=== PATIENT | male | born 1955 | race Caucasian/White ===

== ENCOUNTER → 2019-01-26 08:15 | Outpatient (CLI) | payer MEDICARE, MEDICAID | END | disposition home or self-care (01) | LOC: D.US 08:15 | PROVIDERS: ATTEND General Practice | DX: R10.11 Right upper quadrant pain (principal) ==

== ENCOUNTER 2019-04-01 10:55 | Outpatient (CLI) | payer MEDICARE, MEDICAID ==
[~2019-04-01] VITALS: Ht 175.3 cm; Wt 89.5 kg
--- NOTE | ~2019-04-01 | HEMODYNAMI ---
PATIENT:GERALDINE CAPELLAN MEDICAL RECORD: [id number] : 51 LOCATION:[facility] ADMISSION DATE: 04/01/19 Generatedon:04/01/201914:17 Patient name: GERALDINE CAPELLAN Patient #: [id number] SSN: : Date of study: 04/01/2019 Page: Of Hemodynamic Procedure Report Patient Data Patient Demographics Procedure consent was obtained First Name: GERALDINE Gender: Male Last Name: MARILIA : 1955 Middle Initial: H Age: 63 year(s) Patient #: [id number] Race: Unknown Additional ID: [id number] Contact details [address]: [address] [place] [address] State: [place] City: [place] Zip code: [address] Past Medical History Allergies Allergen Reaction Date Comments Reported Other allergy 04/01/2019 TETRACAINE, MORPHINE, CODEINE Admission Admission Data Admission Date: 04/01/2019 Admission Time: 10:55 Height (in.): 69 BSA: 2.06 (m2) Height (cm.): 175.26 BMI: 29.3 (kg/m2) Weight (lbs.): 198.42 Weight (kg.): 90 Lab Results Lab Result Date: 04/01/2019 Lab Result Time: 0:00 Biochemistry Name Units Result Min Max BUN mg/dl 23 --(----)-* 7 18 Creatinine mg/dl 1.3 --(---*)-- 0.6 1.3 CBC Name Units Result Min Max Hematocrit % 41.8 -*(----)-- 42 54 Hemoglobin g/dl 13.6 --(*---)-- 13.5 17.5 Procedure Procedure Types Cath Procedure Diagnostic Procedure [facility] w/Coronaries FFR/IVUS FFR Initial Intra-Coronary IVUS Initial PCI Procedure Coronary Stent Coronary Stent Initial Procedure Description Procedure Date Procedure Date: 04/01/2019 Procedure Start Time: 13:31 Procedure End Time: 14:17 Procedure Staff Name Function Warren Rivera MD Performing Physician Polly Escalona RN Nurse Torito Augustine RN Client Architect [facility] RT Scrub Reese Malone RT Monitor Procedure Data Cath Procedure Fluoroscopy Diagnostic fluoroscopy Total fluoroscopy Time: 7.1 time: 7.1 min min Diagnostic fluoroscopy Total fluoroscopy dose: 671 dose: 671 mGy mGy Contrast Material Contrast Material Type Amount (ml) Isovue 370 97 Entry Location Entry Primary Successful Side Size Upsize Upsize Entry Closure Succes sful Closure Location (Fr) 1 (Fr) 2 (Fr) Remarks Device Remarks Femoral Right 5 Fr 6 Fr Exoseal artery Short Estimated blood loss: 10 ml Diagnostic catheters Device Type Used For End Catheter Placement MULTIPACK JL 4.0 5Fr Procedure catheter MULTIPACK 3DRC 5Fr Procedure catheter MULTIPACK Pigtail 5 Fr Procedure catheter Procedure Complications No complications Procedure Medications Medication Administration Route Dosage 0.9% NaCl I.V. 100 ml/hr Oxygen etCO2 Nasal cannula 2 l/min Lidocaine 2% added to field 20 Heparin Flush Bag added to field 2 bags (1000units/500ml NS) Versed I.V. 2 mg Fentanyl I.V. 50 mcg Versed I.V. 2 mg Fentanyl I.V. 50 mcg Versed I.V. 2 mg Heparin Bolus I.V. 5000 units Integrilin (Bolus I.V. 7.9 2mg/ml) Plavix P.O. 600 mg Versed I.V. 2 mg Hemodynamics Rest BSA: 2.06 (m2) O2 Consumption: Estimated: 249.23 (ml/min) O2 Consumption indexed : Estimated:120.99 (ml/min/m) Heart Rate: 82 (bpm) Pressure Samples Time Site Value (mmHg) Purpose Heart Use Rate(bpm) 13:39 LV 132/15,18 Snapshot 82 Gradients Valve Time Site Site Mean SEP/DFP Peak To Heart Use 1 2 (mmHg) (sec/min) Peak Rate (mmHg) (bpm) Aortic 13:39 LV AO 83 Snapshots Pre Cath Intra NCS Post Cath Vital Signs Time Heart Resp SPO2 etCO2 NIBP (mmHg) Rhythm Pain Sedation Rate (ipm) (%) (mmHg) Status Level (bpm) 13:20:56 91 15 99 31.3 163/89(139) NSR 0 (11) 10(A) , No pain 13:25:04 84 14 100 20.9 144/92(125) NSR 0 (11) 10(A) , No pain 13:29:16 85 14 100 39.5 136/83(110) NSR 0 (11) 10(A) , No pain 13:33:28 85 10 100 33.6 139/80(100) NSR 0 (11) 10(A) , No pain 13:37:38 82 15 100 24.6 135/78(106) NSR 0 (11) 10(A) , No pain 13:41:52 86 11 100 35.8 144/72(103) NSR 0 (11) 10(A) , No pain 13:46:10 88 13 100 41.8 135/80(105) NSR 0 (11) 10(A) , No pain 13:50:24 85 12 100 30.5 127/80(108) NSR 0 (11) 9(A) , No pain 13:54:36 90 12 100 41.7 133/77(105) NSR 0 (11) 9(A) , No pain 13:58:46 88 14 100 39.5 137/79(99) NSR 0 (11) 9(A) , No pain 14:02:51 91 13 100 35.8 131/86(111) NSR 0 (11) 10(A) , No pain 14:07:01 91 15 100 38 128/89(112) NSR 0 (11) 10(A) , No pain 14:11:07 88 11 100 38 135/88(121) NSR 0 (11) 10(A) , No pain 14:15:15 87 24 99 33.5 146/89(121) NSR 0 (11) 10(A) , No pain Medications Time Medication Route Dose Verified Delivered Reason Notes Effectiveness by by 13:19:28 0.9% NaCl I.V. 100 Warren Polly used for ml/hr Nicole Pola procedure RN 13:19:35 Oxygen etCO2 2 Warren Polly used for Nasal l/min Nicole Pola procedure cannula MD OCAMPO 13:19:40 Lidocaine 2% added 20ml Warren Kelley [facility] SY[facility] 13:19:44 Heparin Flush added 2 Warren Warren used for [facility] (1000units/500ml field MD SYLVESTER NS) 13:31:18 Versed I.V. 2 mg Warren Polly for sedation St Geraldine Escalona MD RN 13:31:25 Fentanyl I.V. 50 Warren Polly for sedation mcg St Geraldine Escalona MD, RN 13:37:47 Versed I.V. 2 mg Warren Polly for sedation St Geraldine Escalona MD, RN 13:37:54 Fentanyl I.V. 50 Warren Polly for sedation mcg St Geraldine Escalona MD, RN 13:42:04 Versed I.V. 2 mg Warren Polly for sedation St Geraldine Escalona MD, RN 13:46:12 Versed I.V. 2 mg Warren Polly for sedation St Geraldine Escalona MD, RN 13:52:41 Heparin Bolus I.V. 5000 Warren Polly for verif ied units St Geraldine Escalona anticoagulation with Dr. SYLVESTER RN Vernal 13:52:55 Integrilin I.V. 7.9mL Warren Polly for waste d (Bolus 2mg/ml) ml St Geraldine Escalona antiplatelet 2.1mL RN therapy 13:57:58 Plavix P.O. 600 Warren Polly for mg St Geraldine Escalona antiplatelet RN therapy Procedure Log Time Note 12:40:38 Signed procedure consent form obtained from patient. 12:40:40 Diagnostic Cath status Elective 12:40:42 Time tracking: Regular hours (M-F 7:00 - 5:00) 12:40:46 Plan of Care:Hemodynamics will remain stable., Cardiac rhythm will remain stable., Comfort level will be maintained., Respiratory function will remain adequate., Patient/ family verbilizes understanding of procedure., Procedure tolerated without complication., Recovers from procedure without complications.. 12:57:05 Polly Escalona RN sent for patient. Start room use. 13:05:02 Patient allergic to Other allergyTETRACAINE, MORPHINE, CODEINE 13:05:08 Patient Weight : 198.42 lbs 13:05:15 Patient Height : 69 inches 13:06:16 Lab Result : BUN 23 mg/dl 13:06:16 Lab Result : Hemoglobin 13.6 g/dl 13:06:16 Lab Result : Creatinine 1.3 mg/dl 13:06:16 Lab Result : Hematocrit 41.8 % 13:12:49 Patient received from Pre/Post Procedure Room to CCL 1 Alert and oriented. Tansferred to table in Supine position. 13:12:50 Warm blankets applied, and vilma hugger turned on for patient comfort. 13:12:50 Correct patient and procedure confirmed by team. 13:12:51 ECG and BP/O2 sat monitors applied to patient. 13:19:28 0.9% NaCl 100 ml/hr I.V. was administered by Polly Escalona RN; used for procedure; 13:19:35 Oxygen 2 l/min etCO2 Nasal cannula was administered by Polly Escalona RN; used for procedure; 13:19:40 Lidocaine 2% 20ml vial added to field was administered by Warren Rivera MD; for local anesthetic; 13:19:44 Heparin Flush Bag (1000units/500ml NS) 2 bags added to field was administered by Warren Rivera MD; used for procedure; 13:19:46 Vital chart was started 13:22:48 Rhythm: sinus rhythm 13:22:49 Full Disclosure recording started 13:24:00 H&P Date Dictated: 03/31/2019 Within 30 days and on chart.. 13:24:01 Pre-procedure instructions explained to patient. 13:24:01 Pre-op teaching completed and patient verbalized understanding. 13:24:08 Family in patients room. 13:24:10 Patient NPO since Midnight. 13:24:12 Is the patient allergic to Iodine/contrast media? No. 13:24:21 Is patient on blood thinner?No 13:24:24 Patient diabetic? No. 13:24:27 Previous problem with sedation/anesthesia? No ? 13:24:28 Snore? Yes 13:24:29 Sleep apnea? No 13:24:31 Deviated septum? No 13:24:31 Opens mouth fully? Yes 13:24:33 Sticks out tongue? Yes 13:24:35 Airway obstruction? No ? 13:24:37 Dentures? No ? 13:25:00 Pt opted for femoral approach. 13:25:00 Pre procedure: right dorsailis pedis pulse 1+ Palpable, but thready & weak; easily obliterated 13:25:03 Patient pain scale 0/10 ?. 13:25:21 IV patent on arrival in left hand with 0.9% NaCl at [facility]. 13:25:25 Lab results completed and on chart. 13:25:27 Right groin area was prepped with chlora-prep and draped in sterile fashion 13:25:28 Alarms reviewed by R. N. 13:25:29 Sharps counted by scrub and verified by R.N. 13:26:16 Use device set Femoral Dx 13:26:18 Tegaderm 4 x 4 (1626W) opened to sterile field. 13:26:19 ACIST Manifold (74797) opened to sterile field. 13:26:20 ACIST Hand Control (34605) opened to sterile field. 13:26:21 ACIST Syringe (91308) opened to sterile field. 13:26:21 Bag Decanter (2002S) opened to sterile field. 13:26:22 Medline Cath Pack ([id number]) opened to sterile field. 13:26:23 DIAGNOSTIC WIRE .035 260cm J wire (240059) opened to sterile field. 13:26:28 DIAGNOSTIC Multipack 5Fr catheter set (UF0435) opened to sterile field. 13:26:31 SHEATH 5FR [place] (JCY561) opened to sterile field. 13:30:41 --------ALL STOP TIME OUT------ 13:30:41 Final Timeout: patient, procedure, and site verified with staff and physician. All members of the team are in agreement. 13:30:43 Right groin site verified by team. 13:30:47 Maximum allowable Isovue 370 dose 300ml. Physician notified. (300ml for normal creatinines. For patients with creatinine of 1.7 or higher multiply weight(kg) x 5 divided by creatinine.) 13:30:52 Fire Safety Assessment: A--An alcohol-based skin anteseptic being used preoperatively., C--Open oxygen or nitrous oxide is being used., D--An ESU, laser, or fiber-optic light is being used. 13:30:58 Physical assessment completed. ASA score P 2 - A patient with mild systemic disease as per Warren Rivera MD. 13:31:01 Sedation plan: IV Moderate Sedation Medication:Versed, Fentanyl 13:31:18 Versed 2 mg I.V. was administered by Polly Escalona RN; for sedation; 13:31:25 Fentanyl 50 mcg I.V. was administered by Polly Escalona RN; for sedation; 13:31:32 Procedure started. 13:31:35 Local anesthetic to right femoral artery with Lidocaine 2% by Warren Rivera MD.INITIAL ACCESS ONLY 13:33:03 A 5 Fr sheath was inserted into the Right Femoral artery 13:34:06 A MULTIPACK JL 4.0 5Fr catheter was advanced over the wire and used for Procedure. 13:34:39 LCA angiography performed. 13:36:19 Catheter removed. 13:36:24 A MULTIPACK 3DRC 5Fr catheter was advanced over the wire and used for Procedure. 13:37:00 RCA angiography performed. 13:37:03 Catheter removed. 13:37:[address] CHANDLER PCI 13:37:21 SHEATH 6FR [place] (ASG429) opened to sterile field. 13:37:38 WHISPER 300cm guide wire ([id number]) opened to sterile field. 13:37:40 INFLATOR Merit BasixCompak (BE1350) opened to sterile field. 13:37:47 Versed 2 mg I.V. was administered by Polly Escalona RN; for sedation; 13:37:47 A MULTIPACK Pigtail 5 Fr catheter was advanced over the wire and used for Procedure. 13:37:54 Fentanyl 50 mcg I.V. was administered by Polly Escalona RN; for sedation; 13:39:14 LV angiography performed. 13:39:15 LV gram done using HENDRIX 13:40:42 EF : 55 % 13:40:44 LV hemodynamics recorded. 13:40:47 Injector settings: Ml/sec: 10, Volume: 20, 13:40:48 Catheter removed. 13:40:51 GUIDE 6FR HS I catheter (LA6HSI) opened to sterile field. 13:40:57 [place] Verrata Plus pressure wire (92876R) opened to sterile field. 13:40:58 Sheath upsized to a 6 Fr Short. 13:41:15 6 Fr HS 1 guide catheter was inserted over the wire 13:42:04 Versed 2 mg I.V. was administered by Polly Escalona RN; for sedation; 13:43:56 FFR/IFR wire advanced. 13:46:12 Versed 2 mg I.V. was administered by Polly Escalona RN; for sedation; 13:49:02 RCA lesion measured at 0.91 with IFR 13:49:23 RCA lesion measured at 0.93 with IFR 13:51:53 Wire removed. 13:52:23 Whisper wire advanced. 13:52:41 Heparin Bolus 5000 units I.V. was administered by Polly Escalona RN; for anticoagulation; verified with Dr. Hernandez 13:52:46 Wire advanced across lesion. 13:52:55 Integrilin (Bolus 2mg/ml) 7.9mL ml I.V. was administered by Polly Escalona RN; for antiplatelet therapy; wasted 2.1mL 13:52:57 [place] Eagleye IVUS Catheter (46360Y) opened to sterile field. 13:53:24 IVUS catheter advanced over wire. 13:55:03 IVUS pass to RCA lesion performed. 13:55:12 IVUS catheter removed over wire. 13:57:58 Plavix 600 mg P.O. was administered by Polly Escalona RN; for antiplatelet therapy; 13:59:24 IVUS measured at 86%. 14:00:18 Place stent Inflation Number: 1 A COBRA RX 3.5 X 18 stent ([id number]) was prepped and advanced across the Mid RCA. The stent was deployed at 12 LYNNE for 0:10 (min:sec). 14:04:46 Stent catheter was removed intact over wire. 14:04:47 Wire removed. 14:04:48 Guide catheter removed. 14:05:32 EXOSEAL 6Fr (EX600) opened to sterile field. 14:05:42 Sheath removed intact; hemostasis achieved with Exoseal to the Right Femoral artery. 14:05:44 Procedure ended.(Physican Out) 14:06:45 Fluoroscopy time 07.10 minutes. 14:06:49 Fluoroscopy dose: 671 mGy 14:06:49 Flurop Dose total: 671 14:07:01 Contrast amount:Isovue 370 97ml. 14:07:02 Sharps counted by scrub and verified by R.N. 14:07:04 Insertion/operative site no bleeding no hematoma. 14:07:08 Post-op/insertion site Right Femoral artery dressed using a 4 x 4 and Tegaderm. 14:07:09 Post Procedure Pulses reassessed and unchanged 14:07:12 Post-procedure physical assessment completed. ASA score P 2 - A patient with mild systemic disease as per Warren Rivera MD. 14:07:14 Post procedure rhythm: unchanged. 14:07:16 Estimated blood loss: 10 ml 14:07:19 Post procedure instruction explained to patient.Patient verbalizes understanding. 14:07:19 Patient needs reinforcement of post procedure teaching. 14:08:11 Procedure type changed to Cath procedure, Diagnostic procedure, LHC, LHC w/Coronaries, FFR/IVUS, FFR Initial, Intra-Coronary IVUS Initial, PCI procedure, Coronary Stent, Coronary Stent Initial 14:14:44 Pt began to develop a hematoma. Femstop applied at 120. 14:14:51 FEMSTOP Gold (D05330) opened to sterile field. 14:14:56 Procedure and supply charges have been captured, reviewed, submitted and are correct. 14:14:59 Procedure Complication : No complications 14:16:57 Vital chart was stopped 14:16:59 See physician's report for complete and final results. 14:17:01 Report given to Pre/Post Procedure Room. 14:17:07 Patient transfered to Pre/Post Procedure Room with Stretcher. 14:17:09 Procedure ended. 14:17:09 Full Disclosure recording stopped 14:17:17 End room use (Document Last) Intervention Summary Intervention Notes Time ActionType Lesion and Equipment Used Action# Pressure Duration Attributes 14:00:18 Place stent Mid RCA COBRA RX 3.5 X 1 12 00:10 18 stent ([id number]) Device Usage Item Name Manufacture Quantity Catalog Hospital Part Current Minimal Lot# / Number Charge Number Stock Stock Serial# Code Tegaderm 4 x 4 3M 1 1626W 228679 [id number] [id number] 5 (1626W) ACIST Manifold Acist 1 91116 111150 002767 724638 5 (47612) Medical Systems Inc ACIST Hand Acist 1 31659 954290 136317 491603 5 Control Medical (66459) Systems Inc ACIST Syringe Acist 1 15886 696563 735007 023600 20 (49067) Medical Systems Inc Bag Decanter Microtek 1 2001S 692580 43252 767499 5 (2001S) Medical Inc. Medline Cath Medline 1 [id number] 790670 75349 643244 5 Pack ([id number]) DIAGNOSTIC [facility] Abram 1 286037 878695 448256 528724 30 WIRE .035 260cm J wire (295877) DIAGNOSTIC Cardinal 1 WG8207 020178 19709 270485 30 Multipack 5Fr Health catheter set (SS0257) SHEATH 5FR Terumo 1 EBT855 828572 403839 011462 5 [place] (WRZ280) MULTIPACK JL Cardinal 1 092658 5 4.0 5Fr Health catheter MULTIPACK 3DRC Cardinal 1 375644 5 5Fr catheter Health SHEATH 6FR Terumo 1 VAN206 142732 903149 568230 40 [place] (BRW386) WHISPER 300cm Morton 1 [id number] 950638 941686 353315 5 guide wire Vascular ([id number]) INFLATOR Merit Merit 1 YJ0575 578992 047842 254517 15 greenovation [facility] Medical (XK9221) MULTIPACK Cardinal 1 819038 5 Pigtail 5 Fr Health catheter GUIDE 6FR HS I Medtronic 1 LA6HSI 469073 93093 531751 1 catheter (LA6HSI) [place] 1 32450K 585585 755906 816126 8 [place] Eagley[place] IVUS Catheter (13329I) [place] 1 22322Q 020150 128648762 802807 5 Verrata Plus pressure wire (12350M) COBRA RX 3.5 X Celonova 1 811-17-60125 070499 262390151 05102516 2 [id number] 18 stent Biosciences ([id number]) EXOSEAL 6Fr Cardinal 1 EX600 546021 775944 062672 10 (EX600) Health FEMSTOP Gold [facility] Abram 1 Z86722 358058 412946 128153 5 ([id number]) Signature Audit [place] Stage Time Signature Unsigned Intra-Procedure 04/01/2019 Reese Malone 2:17:28 PM RT(R) Signatures Monitor : Reese Malone RT Signature : Date : Time : [facility] [address] [place] [address]
[2019-04-01] MEDS ORDERED: FUROSEMIDE20 MG PO (11:11)
[2019-04-01] MEDS ORDERED: XALATAN 0.0052.5 ML EACH EYE (11:11)
[2019-04-01] MEDS ORDERED: ALDACTONE25 MG PO (11:12)
[2019-04-01] MEDS ORDERED: PREDNISONE5 MG PO (11:12)
[2019-04-01] MEDS ORDERED: XANAX1 MG PO (11:13)
[2019-04-01] MEDS ORDERED: ADVAIR HFA 230-12 GM INH (11:13)
[2019-04-01] MEDS ORDERED: ZOCOR20 MG PO (11:14)
[2019-04-01] MEDS ORDERED: ALBUTEROL SULF8.5 GM INH (11:14)
[2019-04-01] MEDS ORDERED: MECLIZINE HCL25 MG PO (11:14)
[2019-04-01] MEDS ORDERED: BAYER CHEWABLE81 MG PO ×2 (11:15→14:15)
[2019-04-01 11:31] VITALS: BP 150/82; Ht 175.3 cm; Wt 89.5 kg
[2019-04-01 11:40] LABS: BASOPHILS 0.3 % (0-2); EOSINOPHILS 1.7 % (0-7); HEMATOCRIT 41.8 % (42.0-54.0); HEMOGLOBIN 13.6 g/dL (13.5-17.5); IMMATURE GRANULOCYTES 0.5 % (0-5); LYMPHOCYTES 20.4 % (15-50); MCH 29.5 pg (26.0-34.0); MCHC 32.5 g/dL (31.0-37.0); MCV 90.7 fL (80.0-100.0); MEAN PLATELET VOLUME 9.2 fL (7.4-10.4); MONOCYTES 9.4 % (2-11); NEUTROPHILS 67.7 % (40-80); PLATELET COUNT 170 10x3/uL (130-400); RBC 4.61 10x6/uL (4.20-6.10); WBC 7.8 10x3/uL (4.8-10.8)
[2019-04-01 11:49] LABS: ANION GAP 8.5 mmol/L (8-16); CALCIUM 9.3 mg/dL (8.5-10.1); CREATININE - SERUM 1.3 mg/dL (0.6-1.3); POTASSIUM - SERUM 4.5 mmol/L (3.5-5.1)
[2019-04-01] MEDS ORDERED: PLAVIX75 MG PO (14:15)
--- NOTE | 2019-04-01 15:00 | NUR ---
1435 PT RULA PO FLUIDS WITH NO NAUSEA. SANDWICH SERVED. PT IS ALERT AND DENIES ANY C/O. VSS. RESP WITH EASE.
--- NOTE | 2019-04-01 15:05 | NUR ---
PT ALERT, DENIES ANY C/O. FEMSTOP INTACT WITH NO BLEEDING OR INCREASE IN HEMATOMA NOTED. PEDAL PULSES PALPABLE. PT WITH OCCASIONAL COUGH, RULA PO FLUIDS AND SANDWICH WITH NO NAUSEA. VSS, DAUGHTER AT BEDSIDE.
--- NOTE | 2019-04-01 15:37 | NUR ---
1528 HEMATOMA NOTED AND ENLARGING AT CATH SITE. DANI FINLEY, RT HERE TO ADJUST FEMSTOP. FEMSTOP PRESSURE AT 214, PEDAL PULSES BY DOPPLER. HOB IS FLAT, PT INSTRUCTED TO KEEP HEAD FLAT TO PILLOW AND RIGHT LEG STRAIGHT.
--- NOTE | 2019-04-01 16:08 | NUR ---
1550 PT C/O BACK PAIN WITH LAYING FLAT, STATES HAS SPINAL STENOSIS AND PAIN WORSENS IN THIS POSITION. ALSO STATES SORENESS AT GROIN SITE WHERE FEMSTOP IS IN PLACE. DR LARRY NOTIFED AND NEW ORDERS OBTAINED. 1605 DEMEROL 50 MG TAB X1 PO AND TORADOL 15MG IV X1 GIVEN PER ORDERS. VSS. NO INCREASE IN HEMATOMA NOTED. PEDAL PULSES BY DOPPLER. HOB IS FLAT, DAUGHTER AT BEDSIDE.
--- NOTE | 2019-04-01 16:30 | NUR ---
1615 FEMSTOP PRESSURE WEANED BY DANI FINLEY, RT. PEDAL PULSES PALPABLE. FEMSTOP PRESSURE READING AT 95MM HG. HOB IS FLAT, VSS. NO INCREASE IN HEMATOMA NOTED. AREA IS MARKED AND HAS NOT INCREASED SINCE FEMSTOP ADJUSTED. DAUGHTER AT BEDSIDE.
--- NOTE | 2019-04-01 17:07 | NUR ---
1635 30 MM HG PRESSURE WEANED FROM FEMSTOP WITH NO BLEEDING OR INCREASE IN HEMATOMA NOTED. PEDAL PULSES PALPABLE. VSS, STATES PAIN LEVEL AT A 4/10 AT THIS TIME. 1650 30 M MG WEANED FROM TR BAND WITH NO BLEEDING NOTED. HEMATOMA STABLE AND NO INCREASE. PEDAL PULSES PALPABLE. HOB IS FLAT, VSS, DENIES ANY C/O. 1705 30 MM HG WEANED FROM FEMSTOP. PT HAS PULLED OUT IV STATES WAS PUTTING HAND UNDER COVERS AND PULLED IT OUT ACCIDENTALLY. CATH TIP IS INTACT, COTTON BALL AND BANDAID APPLIED.
--- NOTE | 2019-04-01 18:21 | NUR ---
1720 ALL REMAINING AIR WEANED FROM FEMSTOP AND FEMSTOP REMOVED. 4X4 AND TEGADERM DRESSING PLACED TO SITE. NO BLEEDING OR INCREASE IN AREA MARKED FROM EARLIER HEMATOMA NOTED. PEDAL PULSES PALPABLE. PT IS ALERT, STATES PAIN IS 3/10 AT THIS TIME AND STATES 'THIS IS ABOUT LOW IT EVER GOES FOR MY BACK" DENIES ANY C/O PAIN TO CATH SITE. BRUISING APPEARING FROM HEMATOMA EARLIER HOB FLAT, VSS. 1750 PT HAS VOIDED 500 CC CLEAR YELLOW URINE TO URINAL. DRESSING CDI, NO INCREASE IN HEMATOMA NOTED. PEDAL PULSES PALPABLE. HOB ELEVATED. . SECOND SANDWICH SERVED.PT ALERT AND DENIES C/O AT THIS TIME,. 1810 DRESSING REMAINS CDI, NO BLEEDING OR CHANGE IN HEMATOMA NOTED. DC INSTRUCTIONS REVIEWED [facility] PT WHO VERBALIZES UNDERSTANDING. PULSES PALPABLE.
--- NOTE | 2019-04-01 18:29 | NUR ---
PT'S DAUGHTER HERE TO PICK HIM UP. PT DRESSED WTIH ASSIST FROM NURSE. PT ESCORTED TO PRIVATE AUTO VIA WC. PT AND DAUGHTER VERBALIZE UNDERSTANDING OF STARTING PLAVIX TOMORROW AND PLAVIX PRESCRIPTION TO PATIENT. PT ESCORTED TO PRIVATE AUTO VIA WC BY NURSE WITH DAUGHTER DRIVING HIM HOME.
--- NOTE | 2019-04-06 12:26 | OP ---
PATIENT NAME: GERALDINE CAPELLAN MEDICAL RECORD: [id number] :51 LOCATION:D.CAT ADMISSION DATE: SURGEON: ROSETTE LARRY MD DATE OF OPERATION: 04/01/2019 Catheterization, PTCA stent, plus IVUS to the right coronary. PROCEDURE: Left heart catheterization, selective coronary angiography, right femoral artery approach. CATHETERS: JL4, left and right Nela, 5/4 pig. The procedure was well tolerated. The patient returned to castillo. Sheath removed. ExoSeal device placed. FINDINGS: Left ventriculography in 30-degree HENDRIX view: Normal wall motion, normal systolic function. CORONARY ANATOMY: LEFT MAIN: Left main is free of disease. LAD: Free of disease in the diagonal system. CIRCUMFLEX: Has about 80% stenosis in its mid portion. RIGHT CORONARY ARTERY: Has about a 90% stenosis in its mid portion. DESCRIPTION OF PROCEDURE: A 5-Palauan sheath was exchanged for a 6-Palauan sheath. A Whisper wire was placed across the lesion in the right down this portion of vessel. Intravascular ultrasound confirmed 85.3% stenosis. Stent deployed was a 3.5 x 18 mm Cobra up to 14 atmospheres for 45 seconds. Final angiography showed excellent occlusion 80 plus percent stenosis to no significant residual. DAYLIN flow was 3 throughout the procedure. Heparin and Integrilin were used during the case. Sheath closed with ExoSeal device. Plavix was loaded in the lab. TRANSINT:[id number] Voice Confirmation ID: [id number] DOCUMENT ID: [id number] ROSETTE LARRY MD at 1226 CC: [id number] DICTATION DATE: 04/01/19 1412 INTEGRATION CONSULTANT: 04/01/19 1436 DEP CLI 04/01/19 [place] [id number] [place] [id number]
== END 2019-04-01 18:25 | disposition home or self-care (01) ==
LOC: D.CATH 10:55
PROVIDERS: ATTEND Internal Medicine Interventional Cardiology
DX: I25.119 Atherosclerotic heart disease of native coronary artery with unspecified angina pectoris (principal); Z01.812 Encounter for preprocedural laboratory examination

== ENCOUNTER 2019-04-21 11:13 | Outpatient (CLI) | payer MEDICARE, MEDICAID | END 2019-04-21 17:40 | disposition home or self-care (01) | LOC: D.CATH 11:13 | DX: I25.110 Atherosclerotic heart disease of native coronary artery with unstable angina pectoris (principal); I10 Essential (primary) hypertension; E78.5 Hyperlipidemia, unspecified ==

== ENCOUNTER → 2019-08-31 12:46 | Outpatient (CLI) | payer MEDICARE, MEDICAID ==
[2019-04-21 11:49] VITALS: BMI 28.2
[~2019-08-31 12:46] MED LIST: ADVAIR HFA 230-12 GM INH; ALBUTEROL SULF8.5 GM INH; ALDACTONE25 MG PO; BAYER CHEWABLE81 MG PO; FUROSEMIDE20 MG PO; MECLIZINE HCL25 MG PO; PLAVIX75 MG PO; PREDNISONE5 MG PO; XALATAN 0.0052.5 ML EACH EYE; XANAX1 MG PO; ZOCOR20 MG PO
--- NOTE | 2019-09-06 13:29 | EC ---
PATIENT:GERALDINE CAPELLAN DATE OF SERVICE: 08/31/19 SEX: M MEDICAL RECORD: [id number] DATE OF : 51 [facility] AGE OF PATIENT: 63 ADMISSION DATE: 08/31/19 REFERRING PHYSICIAN: INTERPRETING PHYSICIAN: ROSETTE LARRY MD ECHOCARDIOGRAM REPORT ECHO CHARGES 4 ECHO COMPLETE Date: 08/31/19 CLINICAL DIAGNOSIS: HEART MURMUR ECHOCARDIOGRAPHIC MEASUREMENTS (adult normal given) AC root (d.<3.7cm) 3.8 cm LV Septum d (<1.2 cm> 1.6 cm Valve Excursion 1.7 cm LV Septum (systole) 1.7 cm Left Atria (s.<4.0cm> 3.4 cm LVPW d(<1.2cm) 1.5 cm RV (d.<2.3cm) 3.8 cm LVPW (sytole) 1.7 cm LV diastole(<5.6CM) 5.4 cm MV E-F(>70mm/sec) cm LV systole 3.7 cm LVOT Diameter 1.8 cm MV exc.(>10mm) cm Est.ejection fraction (50-75%) % DOPPLER: LVIT cm/sec A 62.0 cm/sec E 45.0 cm/sec LA cm/sec RVSP 15 mmHg LVOT 83 cm/sec AOP1/2T m/s Asc. Ao 123 cm/sec RVOT 86 cm/sec RA cm/sec PA 98 cm/sec AV Gradient Peak 6.09 mmHg AV Mean 2.98 mmHg AV Area 1.4 cm MV Gradient Peak 2.00 mmHg MV Mean 0.88 mmHg MV Area cm COMMENTS: Ordnance Officer: 2 SYDNEY HERNANDEZ Senior Tax Specialist: 3 Dr. Hernandez TAPE# PACS Pericardial Effusion N DATE OF SERVICE: Adequate 2D, color flow, spectral Doppler, and M-Mode. LVH is present. LV internal dimensions are normal. Overall, LV function appears to be lower limits of normal at 50%. Aortic valve sclerosis without stenosis by Doppler interrogation. Left atrium is normal at 3.4 cm. Mitral valve shows no prolapse. Trace MR. Right-sided chambers are grossly normal. Mild TR. TRANSINT:[id number] Voice Confirmation ID: [id number] DOCUMENT ID: [id number] ECHOCARDIOGRAM REPORT [id number] GERALDINE CAPELLAN ROSETTE LARRY MD at 1329 CC: [id number] DICTATION DATE: 09/02/19 1307 TRANSPORTATION EQUIPMENT PAINTER: 09/02/19 1324 DEP CLI 08/31/19 [place] 145650 [place] [address]
== END | disposition home or self-care (01) ==
LOC: D.HCCECHO 12:46 → D.HCCARDIO 13:00 → D.HCCECHO 13:00
PROVIDERS: ATTEND Internal Medicine Interventional Cardiology
DX: R01.1 Cardiac murmur, unspecified (principal)

== ENCOUNTER → 2019-09-20 12:01 | Outpatient (CLI) | payer MEDICARE, MEDICAID ==
[2019-04-21 11:49] VITALS: BMI 28.2
== END | disposition home or self-care (01) ==
LOC: D.US 12:01
PROVIDERS: ATTEND General Practice
DX: I73.9 Peripheral vascular disease, unspecified (principal)

== ENCOUNTER 2019-11-09 10:47 | Outpatient (CLI) | payer MEDICARE, MEDICAID ==
[~2019-11-09] VITALS: Ht 175.3 cm; Wt 80.0 kg
--- NOTE | ~2019-11-09 | HEMODYNAMI ---
PATIENT:GERALDINE CAPELLAN MEDICAL RECORD: [id number] : 51 LOCATION:[facility] ADMISSION DATE: 11/09/19 Generatedon:11/09/201915:03 Patient name: GERALDINE CAPELLAN Patient #: [id number] SSN: [id number] : 1955 Date of study: 11/09/2019 Page: Of Hemodynamic Procedure Report Patient Data Patient Demographics Procedure consent was obtained First Name: GERALDINE Gender: Male Last Name: MARILIA : 1955 Middle Initial: CHRISTINA Age: 64 year(s) Patient #: [id number] Race: SSN: [id number] Additional ID: [id number] Contact details [address]: [address] [place] [address] State: [place] City: [place] Zip code: [address] Past Medical History History of disease Date Diagnosis Comments CAD Allergies Allergen Reaction Date Comments Reported Other allergy 04/01/2019 TETRACAINE, MORPHINE, CODEINE Codeine 04/21/2019 Morphine 04/21/2019 Other allergy 04/21/2019 pontacaine Other allergy 11/09/2019 CODEINE, MORPHINE, PONTOCAINE Admission Admission Data Admission Date: 11/09/2019 Admission Time: 10:47 Arrival Date: 11/09/2019 Arrival Time: 0:00 Height (in.): 69 BSA: 1.96 (m2) Height (cm.): 175.26 BMI: 26.05 (kg/m2) Weight (lbs.): 176.37 Weight (kg.): 80 Lab Results Lab Result Date: 11/09/2019 Lab Result Time: 0:00 Biochemistry Name Units Result Min Max BUN mg/dl 16 --(---*)-- 7 18 Creatinine mg/dl 1.2 --(---*)-- 0.6 1.3 eGFR ml/min 64.66838 *-(----)-- 90 120 NONAFRICAN CBC Name Units Result Min Max Hematocrit % 45.4 --(-*--)-- 42 54 Hemoglobin g/dl 14.5 --(*---)-- 13.5 17.5 Procedure Procedure Types Cath Procedure Peripheral Cath Diagnostic Procedure Bottoming Room Supervisor Peripheral Procedures AFRO (Diagnostic) Procedure Description Procedure Date Procedure Date: 11/09/2019 Procedure Start Time: 14:47 Procedure End Time: 14:59 Procedure Staff Name Function Warren Rivera MD Performing Physician Torito Augustine RN Nurse Keli Faye RT Monitor Chio Ivan RT Monitor Alva Lala RT Scrub Reese Malone RT Scrub Indication CAD Procedure Data Cath Procedure Fluoroscopy Diagnostic fluoroscopy Total fluoroscopy Time: 0.8 time: 0.8 min min Diagnostic fluoroscopy Total fluoroscopy dose: 153 dose: 153 mGy mGy Contrast Material Contrast Material Type Amount (ml) Isovue 370 87 Entry Location Entry Primary Successful Side Size Upsize Upsize Entry Closure Succes sful Closure Location (Fr) 1 (Fr) 2 (Fr) Remarks Device Remarks Femoral Left 5 Fr Exoseal artery Estimated blood loss: 5 ml Diagnostic catheters Device Type Used For End Catheter Placement DIAGNOSTIC UF 5Fr Procedure catheter ([id number]) Procedure Complications No complications Procedure Medications Medication Administration Route Dosage Oxygen etCO2 Nasal cannula 2 l/min Lidocaine 2% added to field 20 Heparin Flush Bag added to field 2 bags (1000units/500ml NS) 0.9% NaCl I.V. 100 ml/hr Versed I.V. 2 mg Fentanyl I.V. 100 mcg Versed I.V. 2 mg Fentanyl I.V. 100 mcg Versed I.V. 2 mg Fentanyl I.V. 100 mcg Hemodynamics Rest BSA: 1.96 (m2) O2 Consumption: Estimated: 266.56 (ml/min) O2 Consumption indexed : Estimated:136 (ml/min/m) Pre Cath Intra NCS Post Cath Vital Signs Time Heart Resp SPO2 etCO2 NIBP (mmHg) Rhythm Pain Sedation Rate (ipm) (%) (mmHg) Status Level (bpm) 14:35:23 78 20 97 0 144/84(109) NSR 0 (11) 10(A) , No pain 14:39:39 77 12 95 37 121/79(111) NSR 0 (11) 10(A) , No pain 14:43:43 78 16 94 26.4 107/79(96) NSR 0 (11) 10(A) , No pain 14:47:47 75 15 94 27.2 115/76(106) NSR 0 (11) 10(A) , No pain 14:51:55 66 12 95 31.7 122/72(113) NSR 0 (11) 10(A) , No pain 14:56:31 77 18 95 34.7 142/83(115) NSR 0 (11) 10(A) , No pain 14:59:50 86 15 94 0 124/75(104) NSR 0 (11) 10(A) , No pain Medications Time Medication Route Dose Verified Delivered Reason Notes Eff ectiveness by by 14:31:47 Oxygen etCO2 2 Warren Buffie used for Nasal l/min [facility] procedure cannula 14:31:57 Lidocaine 2% added 20ml Warren Warren for local to vial [facility] anesthetic field MD SYLVESTER 14:32:04 Heparin Flush added 2 Warren Warren used for Bag to bags [facility] procedure (1000units/500ml field MD SYLVESTER NS) 14:32:22 0.9% NaCl I.V. 100 Warren Warren used for ml/hr [facility] procedure MD SYLVESTER 14:45:38 Versed I.V. 2 mg Warren Buffie for [facility] RN sedation 14:45:43 Fentanyl I.V. 100 Warren Buffie for [facility] Augustine RN sedation 14:48:03 Versed I.V. 2 mg Warren Buffie for [facility] RN sedation 14:48:07 Fentanyl I.V. 100 Warren Buffie for mcg [facility] RN sedation 14:54:35 Versed I.V. 2 mg Warren Buffie for [facility] RN sedation 14:54:38 Fentanyl I.V. 100 Warren Buffie for [facility] RN sedation Procedure Log Time Note 14:14:32 Informed consent obtained and on chart 14:15:44 Procedure Status Elective Heart Cath (OP). 14:15:45 Time tracking: Regular hours (M-F 7:00 - 5:00) 14:15:47 Plan of Care:Hemodynamics will remain stable., Cardiac rhythm will remain stable., Comfort level will be maintained., Respiratory function will remain adequate., Patient/ family verbilizes understanding of procedure., Procedure tolerated without complication., Recovers from procedure without complications.. 14:15:49 Doc Mcguire RN sent for patient. Start room use. 14:15:53 H&P Date Dictated: 11/09/2019 New H&P dictated by physician.. 14:16:14 Patient allergic to Other allergyCODEINE, MORPHINE, PONTOCAINE 14:22:01 Patient Weight : 176.37 lbs 14:22:14 Patient Height : 69 inches 14:22:19 Arrival Date: 11/09/2019 12:00:00 AM 14:23:04 Lab Result : BUN 16 mg/dl 14:23:04 Lab Result : Hematocrit 45.4 % 14:23:04 Lab Result : eGFR NONAFRICAN 64.46195 ml/min 14:23:04 Lab Result : Creatinine 1.2 mg/dl 14:23:04 Lab Result : Hemoglobin 14.5 g/dl 14:25:07 Indication : CAD 14:26:41 Patient received from Pre/Post Procedure Room to CCL 1 Alert and oriented. Tansferred to table in Supine position. 14:26:43 Warm blankets applied, and vilma hugger turned on for patient comfort. 14:26:43 Correct patient and procedure confirmed by team. 14:26:44 ECG and BP/O2 sat monitors applied to patient. 14:31:47 Oxygen 2 l/min etCO2 Nasal cannula was administered by Torito Augustine RN; used for procedure; Verbal order read back and verified. 14:31:57 Lidocaine 2% 20ml vial added to field was administered by Warren Rivera MD; for local anesthetic; Verbal order read back and verified. 14:32:04 Heparin Flush Bag (1000units/500ml NS) 2 bags added to field was administered by Warren Rivera MD; used for procedure; Verbal order read back and verified. 14:32:22 0.9% NaCl 100 ml/hr I.V. was administered by Warren Rivera MD; used for procedure; Verbal order read back and verified. 14:32:35 Snore? Yes 14:32:37 Sleep apnea? Yes 14:32:49 Airway obstruction? Yes COPD, EMPHYZEMA 14:32:53 Opens mouth fully? Yes 14:32:55 Sticks out tongue? Yes 14:32:56 Deviated septum? No 14:33:00 Dentures? Yes IN TIGHT 14:33:16 IV patent on arrival in right antecubital with 0.9% NaCl at [facility]. 14:33:20 Pre procedure: right dorsailis pedis pulse 2+ Normal; easily identifiable; not easily obliterated 14:33:23 Patient pain scale 0/10 ?. 14:33:27 Lab results completed and on chart. 14:33:34 Stress Test: no; N/A ? 14:34:16 Vital chart was started 14:34:21 Pre-procedure instructions explained to patient. 14:34:21 Pre-op teaching completed and patient verbalized understanding. 14:34:24 Family in waiting room. 14:34:26 Patient NPO since Midnight. 14:34:28 Is the patient allergic to Iodine/contrast media? No. 14:34:32 Was the patient premedicated? Yes 14:34:34 Is patient on blood thinner?Yes 14:34:38 Patient diabetic? No. 14:34:39 If diabetic: On Metformin? N/A 14:35:08 ACC The patient was administered the following blood thiners within the last 24 hours: ACCAspirin 14:35:43 Bilateral groins area was prepped with chlora-prep and draped in sterile fashion 14:35:46 Alarms reviewed by R. N. 14:35:47 Sharps counted by scrub and verified by R.N. 14:35:59 Full Disclosure recording started 14:36:36 Use device set Femoral Dx 14:36:58 ACIST Syringe (94362) opened to sterile field. 14:36:59 Bag Decanter () opened to sterile field. 14:37:01 Medline Cath Pack ([id number]) opened to sterile field. 14:37:03 ACIST Hand Control (02759) opened to sterile field. 14:37:04 ACIST Manifold (78310) opened to sterile field. 14:37:06 Tegaderm 4 x 4 (1626W) opened to sterile field. 14:37:10 SHEATH 5FR Laverne (HGY143) opened to sterile field. 14:37:11 EMERALD Guide Wire (976-731) opened to sterile field. 14:44:25 --------ALL STOP TIME OUT------ 14:44:25 Final Timeout: patient, procedure, and site verified with staff and physician. All members of the team are in agreement. 14:44:29 Bilateral groins site verified by team. 14:44:53 Fire Safety Assessment: A--An alcohol-based skin anteseptic being used preoperatively., C--Open oxygen or nitrous oxide is being used., D--An ESU, laser, or fiber-optic light is being used. 14:45:02 Physical assessment completed. ASA score P 2 - A patient with mild systemic disease as per Warren Rivera MD. 14:45:10 2) 60-89 Mildly reduced kidney function, and other findings (as for stage 1) point to kidney disease. 14:45:16 Maximum allowable contrast dose (3.7 X eGFR X 0.75)178 ml. 14:45:20 Sedation plan: IV Moderate Sedation Medication:Versed, Fentanyl 14:45:38 Versed 2 mg I.V. was administered by Torito Augustine RN; for sedation; Verbal order read back and verified. 14:45:43 Fentanyl 100 mcg I.V. was administered by Torito Augustine RN; for sedation; Verbal order read back and verified. 14:47:24 Procedure started. 14:47:30 Local anesthetic to right femoral artery with Lidocaine 2% by Warren Rivera MD.INITIAL ACCESS ONLY 14:48:03 Versed 2 mg I.V. was administered by Torito Augustine RN; for sedation; Verbal order read back and verified. 14:48:07 Fentanyl 100 mcg I.V. was administered by Torito Augustine RN; for sedation; Verbal order read back and verified. 14:48:54 A 5 Fr sheath was inserted into the Left Femoral artery 14:49:21 A DIAGNOSTIC UF 5Fr catheter ([id number]) was advanced over the wire and used for Procedure. 14:49:36 Zero performed for pressure channel P1 14:52:04 Abdominal angiogram w/ runoff was performed. 14:52:57 Left leg runoff performed. 14:53:31 Right leg runoff performed. 14:54:34 Catheter removed. 14:54:35 Versed 2 mg I.V. was administered by Torito Augustine RN; for sedation; Verbal order read back and verified. 14:54:38 Fentanyl 100 mcg I.V. was administered by Torito Augustine RN; for sedation; Verbal order read back and verified. 14:55:43 EXOSEAL 5Fr (EX500) opened to sterile field. 14:56:01 Sheath removed intact; hemostasis achieved with Exoseal to the Left Femoral artery. 14:56:08 Procedure ended.(Physican Out) 14:56:15 Fluoroscopy time 00.80 minutes. 14:56:20 Fluoroscopy dose: 153 mGy 14:56:20 Flurop Dose total: 153 14:56:25 Dose Area Product 16552 mGy/cm. 14:56:30 Contrast amount:Isovue 370 87ml. 14:56:33 Maximum allowable dose exceeded? No. 14:56:34 Sharps counted by scrub and verified by R.N. 14:56:45 Post left femerol artery:stable, soft, clean and dry 14:56:47 Post Procedure Pulses reassessed and unchanged 14:56:52 Post procedure: right dorsailis pedis pulse 2+ Normal; easily identifiable; not easily obliterated. 14:57:07 Post-procedure physical assessment completed. ASA score P 2 - A patient with mild systemic disease as per Warren Rivera MD. 14:57:10 Post procedure rhythm: unchanged. 14:57:14 Estimated blood loss: 5 ml 14:57:16 Post procedure instruction explained to patient.Patient verbalizes understanding. 14:57:17 Patient needs reinforcement of post procedure teaching. 14:57:43 Procedure and supply charges have been captured, reviewed, submitted and are correct. 14:58:26 Procedure Complication : No complications 14:58:33 [facility] Findings: mild to moderate CAD (<70%) 14:58:35 Operative report dictated upon procedure completion. 14:58:36 See physician's report for complete and final results. 14:58:38 Report given to Pre/Post Procedure Room. 14:58:46 Patient transfered to Pre/Post Procedure Room with Stretcher. 14:59:04 Procedure ended. 14:59:04 Full Disclosure recording stopped 15:01:15 Vital chart was stopped 15:02:07 End room use (Document Last) 15:02:21 End room use (Document Last) Device Usage Item Name Manufacture Quantity Catalog Hospital Part Current Minimal L ot# / Number Charge Number Stock Stock Serial# Code ACIST Acist 1 16539 031057 210738 107431 20 Footbalistic (24598) inEarth Bag Microtek 1 655865 98429 232144 5 Decanter Medical Inc. () Medline Medline 1 [id number] 620407 11611 480025 5 Cath Pack ([id number]) ACIST Hand Acist 1 35693 139436 767940 634682 5 Control Medical (73792) Systems Inc ACIST Acist 1 65789 980997 053357 594797 5 Manifold Medical (91100) Systems Inc Tegaderm 4 3M 1 1626W 166763 558436 622162 5 x 4 (1626W) SHEATH 5FR Terumo 1 CUZ600 139972 335842 419011 5 Laverne (BCB104) EMERALD Cardinal 1 502-455 498716 829655 864826 5 Guide Wire Health (502455) DIAGNOSTIC Cardinal 1 [id number] 856296 814746 099400 10 UF 5Fr Health catheter (643161F3) EXOSEAL 5Fr Cardinal 1 EX500 078065 432030 030961 10 (EX500) Health Signature Audit [place] Stage Time Signature Unsigned Intra-Procedure 11/09/2019 Keli Faye 3:02:21 PM RT(R) Intra-Procedure 11/09/2019 Torito Augustine RN 3:02:43 PM Intra-Procedure 11/09/2019 Warren Patel 3:03:04 PM Geraldine SYLVESTER [id number] [place] [address]
[2019-11-09 11:33] VITALS: BP 146/77; Ht 175.3 cm; Wt 80.0 kg
[2019-11-09 11:53] LABS: BASOPHILS 0.2 % (0-2); EOSINOPHILS 0.7 % (0-7); HEMATOCRIT 45.4 % (42.0-54.0); HEMOGLOBIN 14.5 g/dL (13.5-17.5); IMMATURE GRANULOCYTES 0.5 % (0-5); MCH 29.1 pg (26.0-34.0); MCHC 31.9 g/dL (31.0-37.0); MCV 91.2 fL (80.0-100.0); MEAN PLATELET VOLUME 8.8 fL (7.4-10.4); MONOCYTES 6.2 % (2-11); NEUTROPHILS 75.4 % (40-80); RBC 4.98 10x6/uL (4.20-6.10); RDW 14.2 % (11.5-14.5); WBC 8.5 10x3/uL (4.8-10.8)
[2019-11-09 11:55] LABS: PLATELET COUNT 258 10x3/uL (130-400)
[2019-11-09 12:08] LABS: ANION GAP 8.5 mmol/L (8-16); CALCIUM 8.5 mg/dL (8.5-10.1); CARBON DIOXIDE 29.3 mmol/L (21.0-32.0); CHOL - HDL RATIO 2.8 ratio (2.3-4.9); CREATININE - SERUM 1.2 mg/dL (0.6-1.3); LDL-HDL RATIO 1.5 ratio (1.5-3.5); POTASSIUM - SERUM 4.8 mmol/L (3.5-5.1)
--- NOTE | 2019-11-09 15:10 | NUR ---
PT RECEIVED VIA STRETCHER FROM TRESTLEMAN FOR RECOVERY. PT AWAKE BUT DROWSY, HE DENIES PAIN OR DISCOMFORT. IV PATENT INFUSING VIA ORDERS. PT PLACED ON CARDIAC MONITORS AND O2 AT 2L/NC. L GROIN W 5FR EXOCELE, DRESSING CDI NO BLEEDING OR S/S HEMATOMA NOTED. PEDAL PULSES PALPALBLE X4. LEG PINK AND WARM. PT INSTRUCTED TO KEEP HEAD ON PILLOW AND LEG STRAIGHT, HE VERBALIZED UNDERSTANDING. CALL LIGHT IN REACH, FRIEND AT BS
--- NOTE | 2019-11-09 15:30 | NUR ---
PT RESTING VISITING W FRIEND. L GROIN SOFT, DRESSING CDI NO BLEEDING OR S/S HEMATOMA NOTED. VSS. CALL LIGHT IN REACH
--- NOTE | 2019-11-09 15:52 | NUR ---
HOB ELEVATED SLIGHTLY, SANDWICH TRAY SERVED. CALL LIGHT IN REACH
--- NOTE | 2019-11-09 16:16 | NUR ---
PT SITTING UP VISITING W FRIEND. TOLERATED SANDWICH TRAY W/O NAUSEA. L GROIN SOFT, DRESSING CDI NO BLEEDING OR S/S HEMATOMA NOTED. VSS. CALL LIGHT IN REACH, PT DENIES NEEDS AT THIS TIME.
--- NOTE | 2019-11-09 16:45 | NUR ---
L GROIN REMAINS SOFT, DRESSING CDI NO BLEEDING OR S/S HEMATOMA NOTED. DISCHARGE INSTRUCTIONS REVIEWED W PT AND FRIEND, BOTH VERBALIZED UNDERSTANDING. IV REMOVED W CATH INTACT, MONITORS REMOVED AND PT UP TO DRESS FOR DISCHARGE
--- NOTE | 2019-11-09 16:59 | NUR ---
PT DISCHARGED VIA WC TO FRIEND WAITING IN PRIVATE VEHICLE. PT HAD ALL BELONGINGS AND DISCHARGE PAPERWORK.
--- NOTE | 2019-11-10 08:54 | HP ---
PATIENT: GERALDINE CAPELLAN MEDICAL RECORD: [id number] ACCOUNT: [id number] LOCATION:[place] : 51 ADMISSION DATE: 11/09/19 PCP: MARYAM BARNES MD HISTORY AND PHYSICAL EXAMINATION HISTORY OF PRESENT ILLNESS: A 64-year-old gentleman with a known history of coronary artery disease, status post intervention to LAD and circumflex. He has a history of hypertension, ongoing tobacco use, been having intermittent claudication, found to have abnormal ABIs, being brought to the lab for diagnostic angiography. PAST MEDICAL HISTORY: 1. Hypertension. 2. Hyperlipidemia. 3. Coronary artery disease as described above. MEDICATIONS: Include; 1. Tramadol 50 mg b.i.d. 2. Aldactone 25 every day. 3. Simvastatin 1 at bedtime. 4. Prednisone 5 mg p.o. every day. SOCIAL HISTORY: Continues to smoke, chew tobacco. No set exercise program. PHYSICAL EXAMINATION: GENERAL: Pleasant gentleman, in no acute distress. HEENT: Normocephalic, atraumatic. NECK: No JVD or bruit. HEART: Regular. LUNGS: Ivan clear. EXTREMITIES: Pulses are decreased. No edema. IMPRESSION: Claudication with abnormal ABIs. PLAN: Plan for angiography. TRANSINT:[id number] Voice Confirmation ID: [id number] DOCUMENT ID: [id number] ROSETTE LARRY MD at 0854 CC: [id number] DICTATION DATE: 11/09/19 1323 SUPPLY CHAIN ASSOCIATE: 11/09/19 1502 DEP CLI 11/09/19 [address] [id number] [place] [address]
--- NOTE | 2019-11-10 08:54 | OP ---
PATIENT NAME: GERALDINE CAPELLAN MEDICAL RECORD: [id number] :51 LOCATION:D.CAT ADMISSION DATE: SURGEON: ROSETTE LARRY MD DATE OF OPERATION: 11/09/2019 AFRO was performed with left femoral artery approach. CATHETER: JOHNNY catheter. PROCEDURE: 1. The JOHNNY catheter was placed to the level of the renal arteries. Abdominal aorta shows calcification with no significant stenosis. No dissection, aneurysm, renal arteries, this is nonselective. Renal arteries arising normally off the abdominal aorta that shows no obvious stenosis. 2. Lower extremity runoff, right: Right internal, external and common iliac show mild wall disease, but no significant flow restrictive. The femoral system including right common, superficial and deep show calcification along the borders of the wall, but no significant stenosis intraluminally with good 3-vessel runoff distally. Left: The left internal and external iliac showed no significant stenosis. The left femoral system including deep common superficial is widely patent without evidence of significant stenosis, mild wall disease with good 3-vessel runoff. IMPRESSION: No significant stenosis described above. TRANSINT:[id number] Voice Confirmation ID: [id number] DOCUMENT ID: [id number] ROSETTE LARRY MD at 0854 CC: [id number] DICTATION DATE: 11/09/19 1501 SECURITY OPERATIONS SPECIALIST: 11/09/19 2257 DEP CLI 11/09/19 [id number] [place] [address]
== END 2019-11-09 17:00 | disposition home or self-care (01) ==
LOC: D.CATH 10:47
PROVIDERS: ATTEND Internal Medicine Interventional Cardiology
DX: I11.0 Hypertensive heart disease with heart failure (principal); I25.10 Atherosclerotic heart disease of native coronary artery without angina pectoris; E78.5 Hyperlipidemia, unspecified; Z72.0 Tobacco use

== ENCOUNTER → 2020-05-29 10:09 | Outpatient (CLI) | payer MEDICARE, MEDICAID ==
[2019-11-09 11:33] VITALS: BMI 26.0
--- NOTE | ~2020-05-29 | EC ---
PATIENT:GERALDINE CAPELLAN DATE OF SERVICE: 05/29/20 SEX: M MEDICAL RECORD: [id number] DATE OF : [birth year] LOCATION:D[facility] AGE OF PATIENT: 64 ADMISSION DATE: 05/29/20 REFERRING PHYSICIAN: INTERPRETING PHYSICIAN: ROSETTE LARRY MD ECHOCARDIOGRAM REPORT ECHO CHARGES 4 ECHO COMPLETE Date: 05/29/20 CLINICAL DIAGNOSIS: HX OF CAD/PVD/HTN ASSESS EF AND VALVES HX OF COPD ECHOCARDIOGRAPHIC MEASUREMENTS (adult normal given) AC root (d.<3.7cm) 3.5 cm LV Septum d (<1.2 cm> 1.3 cm Valve Excursion 1.3 cm LV Septum (systole) 1.5 cm Left Atria (s.<4.0cm> 4.5 cm LVPW d(<1.2cm) 1.4 cm RV (d.<2.3cm) 2.7 cm LVPW (sytole) 1.6 cm LV diastole(<5.6CM) 4.3 cm MV E-F(>70mm/sec) cm LV systole 2.5 cm LVOT Diameter 2.0 cm MV exc.(>10mm) cm Est.ejection fraction (50-75%) % DOPPLER: LVIT cm/sec A 44.0 cm/sec E 35.0 cm/sec LA cm/sec RVSP 14 mmHg LVOT 96 cm/sec AOP1/2T 491 m/s Asc. Ao 121 cm/sec RVOT cm/sec RA cm/sec PA 103 cm/sec AV Gradient Peak 5.88 mmHg AV Mean 2.75 mmHg AV Area 2.6 cm MV Gradient Peak mmHg MV Mean mmHg MV Area cm COMMENTS: Stone Mason: 2 SYDNEY HERNANDEZ Agronomy Advisor: 3 Dr. Hernandez TAPE# PACS Pericardial Effusion N DATE OF SERVICE: Adequate 2D, color flow imaging, spectral Doppler, and M-Mode. Mild LVH. LV internal dimension is normal. Wall motion is normal. EF greater than or equal to 55%. Aortic valve is tricuspid. No evidence of stenosis by Doppler interrogation. Left atrium is mildly dilated at 4.5 cm. Mitral valve shows no prolapse. Trace MR. Right-sided chambers are grossly normal. Trace TR. ECHOCARDIOGRAM REPORT [id number] GERALDINE CAPELLAN TRANSINT:[id number] Voice Confirmation ID: [id number] DOCUMENT ID: [id number] ROSETTE LARRY MD CC: [id number] DICTATION DATE: 05/30/20 1427 MIRROR INSPECTOR: 05/30/20 2332 DEP CLI 05/29/20 [place] [id number] [place] [id number]
== END | disposition home or self-care (01) ==
LOC: D.HCCECHO 10:09
PROVIDERS: ATTEND Internal Medicine Interventional Cardiology
DX: I25.10 Atherosclerotic heart disease of native coronary artery without angina pectoris (principal)

== ENCOUNTER 2020-06-17 19:56 | Inpatient (IN) | payer MEDICARE, MEDICAID ==
[~2020-06-17] VITALS: Ht 175.3 cm; Wt 73.1 kg
[2020-06-17 20:59] LABS: BASOPHILS 0.1 % (0-2); HEMATOCRIT 47.7 % (42.0-54.0); HEMOGLOBIN 15.2 g/dL (13.5-17.5); IMMATURE GRANULOCYTES 0.3 % (0-5); LYMPHOCYTES 8.9 % (15-50); MCH 29.6 pg (26.0-34.0); MCHC 31.9 g/dL (31.0-37.0); MEAN PLATELET VOLUME 9.5 fL (7.4-10.4); MONOCYTES 4.6 % (2-11); NEUTROPHILS 85.1 % (40-80); PLATELET COUNT 180 10x3/uL (130-400); RBC 5.13 10x6/uL (4.20-6.10); RDW 13.8 % (11.5-14.5); WBC 7.6 10x3/uL (4.8-10.8)
[2020-06-17 21:04] LABS: APTT 33.7 SECONDS (22.8-39.4); INR 0.99 (0.85-1.17); PROTIME 13.1 SECONDS (11.6-15.0)
[2020-06-17 21:08] LABS: CALC OSMOLALITY 264 mosm/kg (275-300); CALCIUM 9.2 mg/dL (8.5-10.1); CARBON DIOXIDE 23.8 mmol/L (21.0-32.0); CHLORIDE - SERUM 100 mmol/L (98-107); CREATININE - SERUM 1.4 mg/dL (0.6-1.3); GLUCOSE 102 mg/dL (74-106); POTASSIUM - SERUM 4.1 mmol/L (3.5-5.1); SODIUM 133 mmol/L (136-145); UREA NITROGEN 11 mg/dL (7-18); eGFR NON AFRICAN AMERICAN 54 mL/min (90-120)
[2020-06-17 21:21] LABS: ALBUMIN 3.6 g/dL (3.4-5.0); ALKALINE PHOSPHATASE 62 U/L (30-120); ALT (SGPT) 18 U/L (10-68); BILIRUBIN - TOTAL 0.82 mg/dL (0.2-1.3); CKMB 1.3 U/L (0.0-3.6); CREATINE KINASE 77 UL (21-232); PRO BNP 314 pg/mL (0-125); PROTEIN - SERUM 7.1 g/dL (6.4-8.2)
[2020-06-17 21:23] LABS: TROPONIN-I < 0.017 ng/mL (0.000-0.060)
[2020-06-17 22:08] LABS: C-REACTIVE PROTEIN 2.7 mg/dL (0.0-0.9)
[2020-06-17 22:29] VITALS: BP 125/72
[2020-06-18 00:45] VITALS: BP 105/61
--- NOTE | 2020-06-18 01:00 | NUR ---
RECEIVED FROM ER, A&O, MEDS AND HISTORY COMPLETE, 18G.IV-NS @50, PROVIDED URINAL AND RESPIRTORY CULTURES, EXPLAIN WE NEED CULTURES, PROVIDED ICEWATER, BED IS LOW, SRX2, CALL LIGHT IN REACH, WILL CONTINUE PLAN OF CARE
[2020-06-18] MEDS ORDERED: PROAIR HFA8.5 G1 INH (01:15)
[2020-06-18] MEDS ORDERED: ADVAIR 250-501 EAC1 INH (01:16)
[2020-06-18 03:27] LABS: BILIRUBIN NEGATIVE (NEGATIVE); GLUCOSE 500 mg/dL (NEGATIVE); KETONE NEGATIVE (NEGATIVE); NITRITE NEGATIVE (NEGATIVE); UROBILINOGEN NORMAL (NORMAL)
[2020-06-18 04:00] VITALS: BP 143/65
--- NOTE | 2020-06-18 05:16 | NUR ---
LIVE IN COMPANION ASSESSMENT COMPLETED.
--- NOTE | 2020-06-18 05:53 | NUR ---
LATE ENTRY: ROCEPHIN STARTED AT 2215 FINISHED 2230. 50ML INFUSED. AZITHROMYCIN STARTED 2315 FINISHED 0015. 250ML INFUSED.
[2020-06-18 06:08] LABS: BASOPHILS 0 % (0-2); EOSINOPHILS 0 % (0-7); HEMATOCRIT 42.6 % (42.0-54.0); HEMOGLOBIN 13.8 g/dL (13.5-17.5); IMMATURE GRANULOCYTES 0.4 % (0-5); LYMPHOCYTES 6.3 % (15-50); MCH 29.7 pg (26.0-34.0); MCHC 32.4 g/dL (31.0-37.0); MCV 91.6 fL (80.0-100.0); MEAN PLATELET VOLUME 10.4 fL (7.4-10.4); MONOCYTES 2.1 % (2-11); NEUTROPHILS 91.2 % (40-80); PLATELET COUNT 180 10x3/uL (130-400); RBC 4.65 10x6/uL (4.20-6.10); RDW 13.8 % (11.5-14.5); WBC 8.2 10x3/uL (4.8-10.8)
[2020-06-18 06:09] VITALS: BP 123/70; BMI 25.1
[2020-06-18 06:29] LABS: CALC OSMOLALITY 277 mosm/kg (275-300); CALCIUM 8.5 mg/dL (8.5-10.1); CARBON DIOXIDE 24.9 mmol/L (21.0-32.0); CHLORIDE - SERUM 105 mmol/L (98-107); CREATININE - SERUM 1.3 mg/dL (0.6-1.3); GLUCOSE 182 mg/dL (74-106); MAGNESIUM - SERUM 1.7 mg/dL (1.8-2.4); PHOSPHOROUS 2.8 mg/dL (2.5-4.9); POTASSIUM - SERUM 4.1 mmol/L (3.5-5.1); PRO BNP 648 pg/mL (0-125); SODIUM 136 mmol/L (136-145); TROPONIN-I < 0.017 ng/mL (0.000-0.060); UREA NITROGEN 14 mg/dL (7-18); eGFR NON AFRICAN AMERICAN 59 mL/min (90-120)
--- NOTE | 2020-06-18 09:04 | NUR ---
PT AWAKEA DN ORIENTED WHEN I ENTERED ROOM, GAVE NUMBER TO THE NURSES STATION. TOOK MEDICATIONS WITHOUT COMPLICATIONS. NO COMPLAINTS OR CONCERNS STATED AT THIS TIME CL IN REACH,S RX2.
--- NOTE | 2020-06-18 10:49 | NUR ---
I have reviewed this patient and I concur with the Shift Assessment completed by the Licensed Practical Nurse today this shift.
[2020-06-18 21:16] VITALS: BP 138/80
[2020-06-19 00:39] VITALS: BP 131/74
[2020-06-19 04:18] VITALS: BP 115/68
[2020-06-19 05:17] LABS: ANION GAP 12.9 mmol/L (8-16); CALCIUM 8.6 mg/dL (8.5-10.1); CARBON DIOXIDE 26.2 mmol/L (21.0-32.0); CREATININE - SERUM 1.4 mg/dL (0.6-1.3); MAGNESIUM - SERUM 1.7 mg/dL (1.8-2.4); POTASSIUM - SERUM 4.1 mmol/L (3.5-5.1)
[2020-06-19 05:34] LABS: BASOPHILS 0 % (0-2); EOSINOPHILS 0.1 % (0-7); HEMATOCRIT 41.6 % (42.0-54.0); HEMOGLOBIN 13.2 g/dL (13.5-17.5); IMMATURE GRANULOCYTES 0.3 % (0-5); LYMPHOCYTES 8.7 % (15-50); MCH 29.3 pg (26.0-34.0); MCHC 31.7 g/dL (31.0-37.0); MCV 92.4 fL (80.0-100.0); MEAN PLATELET VOLUME 10.1 fL (7.4-10.4); MONOCYTES 3.7 % (2-11); NEUTROPHILS 87.2 % (40-80); PLATELET COUNT 190 10x3/uL (130-400); RDW 13.9 % (11.5-14.5)
--- NOTE | 2020-06-19 07:20 | NUR ---
RECIEVE REPORT. RESTING IN BED WITH EYES CLOSED. RESPIRATIONS NONLABORED. NO SIGNS OF DISTRESS. CONTINUE PLAN OF CARE AND SAFETY PRECAUTIONS.
[2020-06-19 10:33] VITALS: BP 111/77
[2020-06-19 14:12] VITALS: Ht 175.3 cm; Wt 73.1 kg
[2020-06-19 14:24] VITALS: BP 110/79
--- NOTE | 2020-06-19 19:00 | NUR ---
REPORT RECEIVED, WILL CONTINUE POC. PATIENT IS AAOX4, SITTING UP IN BED. NO S/S OF DISTRESS OBSERVED, RR EVEN AND UNLABORED ON ROOM AIR. PATIENT DENIES NEEDS AT THIS TIME. CL IN REACH, BED LOCKED AND LOWERED. WILL CTM.
[2020-06-19 20:29] VITALS: BP 136/70
[2020-06-20 00:33] VITALS: BP 126/65
--- NOTE | 2020-06-20 04:54 | NUR ---
I have reviewed this patient and I concur with the Shift Assessment completed by the Licensed Practical Nurse today this shift.
[2020-06-20 05:51] VITALS: BP 120/55
[2020-06-20 06:13] LABS: BASOPHILS 0 % (0-2); EOSINOPHILS 0 % (0-7); HEMATOCRIT 40.5 % (42.0-54.0); IMMATURE GRANULOCYTES 0.2 % (0-5); LYMPHOCYTES 7.9 % (15-50); MCH 29.7 pg (26.0-34.0); MCHC 32.1 g/dL (31.0-37.0); MCV 92.5 fL (80.0-100.0); MEAN PLATELET VOLUME 10.3 fL (7.4-10.4); MONOCYTES 5.8 % (2-11); NEUTROPHILS 86.1 % (40-80); RBC 4.38 10x6/uL (4.20-6.10); RDW 13.9 % (11.5-14.5); WBC 6.2 10x3/uL (4.8-10.8)
[2020-06-20 06:17] LABS: PLATELET COUNT 232 10x3/uL (130-400)
[2020-06-20 06:30] LABS: ANION GAP 14.4 mmol/L (8-16); CARBON DIOXIDE 27.9 mmol/L (21.0-32.0); CREATININE - SERUM 1.4 mg/dL (0.6-1.3); POTASSIUM - SERUM 4.3 mmol/L (3.5-5.1)
[2020-06-20 06:31] LABS: PHOSPHOROUS 3.8 mg/dL (2.5-4.9)
--- NOTE | 2020-06-20 07:20 | NUR ---
RECEIVE BEDSIDE REPORT. PATIENT ALERT AND ORIENTED. LYING IN BED WITH TV ON. DENIES NEEDS AT THIS TIME. WILL CONTINUE PLAN OF CARE AND SAFETY PRECAUTIONS.
[2020-06-20 09:24] VITALS: BP 124/61
[2020-06-20 10:26] LABS: UDS - AMPHET NEGATIVE QUAL (NEGATIVE); UDS - BARB NEGATIVE QUAL (NEGATIVE); UDS - BENZO NEGATIVE QUAL (NEGATIVE); UDS - COCAINE NEGATIVE QUAL (NEGATIVE); UDS - OPIATE NEGATIVE QUAL (NEGATIVE); UDS - PCP NEGATIVE QUAL (NEGATIVE); UDS - THC NEGATIVE QUAL (NEGATIVE)
[2020-06-20 13:06] VITALS: BP 115/63
[2020-06-20 18:00] VITALS: BP 122/71
--- NOTE | 2020-06-20 19:05 | NUR ---
REPORT RECEIVED, WILL CONTINUE POC. PATIENT IS AAXO4, UP IN ROOM. NO S/S OF DISTRESS OBSERVED, RR EVEN AND UNLABORED ON ROOM AIR. PATIENT DENIES NEEDS AT THIS TIME. CL IN REACH, BED LOCKED AND LOWERED. WILL CTM.
[2020-06-20 20:00] VITALS: BP 120/70
[2020-06-21] VITALS: BP 132/60
--- NOTE | 2020-06-21 03:19 | NUR ---
I have reviewed this patient and I concur with the Shift Assessment completed by the Licensed Practical Nurse today this shift.
[2020-06-21 04:00] VITALS: BP 131/63
[2020-06-21 06:37] LABS: BASOPHILS 0 % (0-2); EOSINOPHILS 0 % (0-7); HEMATOCRIT 43.2 % (42.0-54.0); HEMOGLOBIN 13.8 g/dL (13.5-17.5); IMMATURE GRANULOCYTES 0.4 % (0-5); LYMPHOCYTES 9.3 % (15-50); MCH 29.3 pg (26.0-34.0); MCHC 31.9 g/dL (31.0-37.0); MCV 91.7 fL (80.0-100.0); MONOCYTES 8.5 % (2-11); NEUTROPHILS 81.8 % (40-80); PLATELET COUNT 212 10x3/uL (130-400); RBC 4.71 10x6/uL (4.20-6.10); RDW 13.9 % (11.5-14.5); WBC 5.5 10x3/uL (4.8-10.8)
[2020-06-21 06:59] LABS: ANION GAP 14.1 mmol/L (8-16); CALCIUM 9.6 mg/dL (8.5-10.1); CREATININE - SERUM 1.6 mg/dL (0.6-1.3); MAGNESIUM - SERUM 2.1 mg/dL (1.8-2.4); PHOSPHOROUS 4.1 mg/dL (2.5-4.9); POTASSIUM - SERUM 4.1 mmol/L (3.5-5.1)
--- NOTE | 2020-06-21 09:51 | MORECARE ---
CASE MANAGEMENT DISCHARGE SUMMARY PATIENT: GERALDINE CAPELLAN UNIT: [id number] ADM DATE: 06/17/20 AGE: 64 : [birth year] SEX: M ROOM/BED: D.2138 AUTHOR: KIMO DC PHYSICIAN: REFERRING PHYSICIAN: GERALDINE SANCHES MD DATE OF SERVICE: 06/21/20 Discharge Plan Patient Name: GERALDINE CAPELLAN [facility] [facility] 1955 Planned Disposition: Anticipated Discharge Date: Discharge Date: Expected LOS: Initial Reviewer: [email or web address] Initial Review Date: 06/18/2020 Generated: 06/21/20 10:50 am Patient Name: GERALDINE CAPELLAN Page [id number] at 0951 All edits/amendments must be made on the electronic document DICTATION DATE: 06/21/2050 ORTHOTICS PROSTHETICS TECHNICIAN: RUPERT 06/21/2050 RPT#: [id number] DC DATE: STATUS: ADM IN [facility] [address] [place] [address] END OF REPORT
[2020-06-21 09:56] VITALS: BP 99/67
--- NOTE | 2020-06-21 09:58 | MORECARE ---
CASE MANAGEMENT DISCHARGE SUMMARY PATIENT: GERALDINE CAPELLAN UNIT: [id number] ADM DATE: 06/17/20 AGE: 64 : 51 SEX: M ROOM/BED: D.4918 AUTHOR: VANDA,DOC PHYSICIAN: REFERRING PHYSICIAN: GERALDINE SANCHES MD DATE OF SERVICE: 06/21/20 Discharge Plan Patient Name: GERALDINE CAPELLAN [facility] [facility] 1955 Planned Disposition: Anticipated Discharge Date: Discharge Date: Expected LOS: Initial Reviewer: [email or web address] Initial Review Date: 06/18/2020 Generated: 06/21/20 10:57 am Comments DCP- Discharge Planning Updated by [email or web address]: Dahlia Velez on 06/21/20 8:[address] Patient Name: GERALDINE CAPELLAN Admission Status: ER Accout number: [id number] Admission Date: 06-17-2020 : 1955 Admission Diagnosis:SHORTNESS OF BREATH Attending: STEFF SANCHES Current LOS: 4 Anticipated DC Date: Planned Disposition: Primary Insurance: [facility] MEDIC[facility] SOLUTIONS Discharge Planning Comments: CM met with patient to complete initial dc planning assessment. CM educated patient on the CM role and verbal consent given by patient to complete assessment. CM verified patient's address, phone number, and emergency contact phone numbers. Patient lives at home alone and states he is independent with his ADL's. At discharge patient plans to return home and feels this is a safe discharge. CM discussed availability of home health, rehab services, and medical equipment. Patient denied known discharge needs at this time. Declination signed. Transportation provider at discharge will be [facility] [phone]. DC IMM delivered, explained, signed by the patient, and placed in chart. Signed form also left with the patient. CM will continue to follow and will assist as needed with dc plans/needs. Award Clerk: Dahlia Velez DCPIA - Discharge Planning Initial Assessment Updated by [email or web address]: Dahlia Velez on 06/21/20 9:50 am * Is the patient Alert and Oriented? Yes * How many steps to enter\exit or inside your home? 1/0 * PCP SING * Pharmacy [facility] * Preadmission Environment Home Alone * ADLs Independent * Equipment Cane * List name and contact numbers for known caregivers / representatives who currently or will assist patient after discharge: THOMAS DTR [phone] * Verbal permission to speak to the caregivers and representatives has been obtained from the patient. Yes * Community resources currently utilized None * Additional services required to return to the preadmission environment? No * Can the patient safely return to the preadmission environment? Yes * Has this patient been hospitalized within the prior 30 days at any hospital? No Coverage Notice Reviewer: [id number] Velez Notice Issued Date-Time: 06/21/2020 9:45 Notice Type: Patient Choice Letter Notice Delivered To: Patient Relationship to Patient: Channel Sales Manager Name: Delivery Method: HAND - Hand Delivered Yelena Days: Prior Verbal Notification: Recipient Understood Notice: Yes Recipient Signature: Yes Med Rec Note Co-signed by Attending: Coverage Notice Comment: declination for hh Reviewer: [email or web address] Cynthia Velez Notice Issued Date-Time: 06/21/2020 9:45 Notice Type: IM Discharge Notice Notice Delivered To: Patient Relationship to Patient: Channel Sales Manager Name: Delivery Method: HAND - Hand Delivered Yelena Days: Prior Verbal Notification: Recipient Understood Notice: Yes Recipient Signature: Yes Med Rec Note Co-signed by Attending: Coverage Notice Comment: DC IMM delivered, explained, signed by the patient, and placed in chart. Signed form also left with the patient. Last DP export: 06/21/20 8:50 a Patient Name: GERALDINE CAPELLAN Page [id number] at 0958 All edits/amendments must be made on the electronic document DICTATION DATE: 06/21/20956 FELT HANGER: RUPERT 06/21/20956 RPT#: [id number] DC DATE: STATUS: ADM IN [facility] [address] [place] [address] END OF REPORT
[2020-06-21] MEDS ORDERED: OMNICEF300 MG PO (10:04)
[2020-06-21] MEDS ORDERED: ZITHROMAX250 MG PO (10:05)
[2020-06-21 12:10] LABS: IMMUNOGLOBULIN E 27 IU/mL (6-495)
--- NOTE | 2020-06-22 18:43 | MORECARE ---
CASE MANAGEMENT DISCHARGE SUMMARY PATIENT: GERALDINE CAPELLAN UNIT: [id number] ADM DATE: 06/17/20 AGE: 64 : 51 SEX: M ROOM/BED: D.5397 AUTHOR: VANDADOC PHYSICIAN: REFERRING PHYSICIAN: GERALDINE SANCHES MD DATE OF SERVICE: 06/22/20 Discharge Plan Patient Name: GERALDINE CAPELLAN [facility] [facility] 1955 Planned Disposition: Anticipated Discharge Date: Discharge Date: 06/21/2020 Expected LOS: Initial Reviewer: [email or web address] Initial Review Date: 06/18/2020 Generated: 06/22/20 7:43 pm Comments DCP- Discharge Planning Updated by [email or web address]: Dahlia Velez on 06/21/20 8:[address] Patient Name: GERALDINE CAPELLAN Admission Status: ER Accout number: [id number] Admission Date: 06-17-2020 : 1955 Admission Diagnosis:SHORTNESS OF BREATH Attending: STEFF SANCHES Current LOS: 4 Anticipated DC Date: Planned Disposition: Primary Insurance: [facility] MEDICARE SOLUTIONS Discharge Planning Comments: CM met with patient to complete initial dc planning assessment. CM educated patient on the CM role and verbal consent given by patient to complete assessment. CM verified patient's address, phone number, and emergency contact phone numbers. Patient lives at home alone and states he is independent with his ADL's. At discharge patient plans to return home and feels this is a safe discharge. CM discussed availability of home health, rehab services, and medical equipment. Patient denied known discharge needs at this time. Declination signed. Transportation provider at discharge will be [employer] [phone]. DC IMM delivered, explained, signed by the patient, and placed in chart. Signed form also left with the patient. CM will continue to follow and will assist as needed with dc plans/needs. Heat And Frost Insulator Helper: Dahlia Velez DCPIA - Discharge Planning Initial Assessment Updated by [email or web address]: Dahlia Velez on 06/21/20 9:50 am * Is the patient Alert and Oriented? Yes * How many steps to enter\exit or inside your home? 1/0 * PCP SING * Pharmacy [facility] * Preadmission Environment Home Alone * ADLs Independent * Equipment Cane * List name and contact numbers for known caregivers / representatives who currently or will assist patient after discharge: THOMAS DTR [phone] * Verbal permission to speak to the caregivers and representatives has been obtained from the patient. Yes * Community resources currently utilized None * Additional services required to return to the preadmission environment? No * Can the patient safely return to the preadmission environment? Yes * Has this patient been hospitalized within the prior 30 days at any hospital? No Coverage Notice Reviewer: [id number] Cynthia Velez Notice Issued Date-Time: 06/21/2020 9:45 Notice Type: Patient Choice Letter Notice Delivered To: Patient Relationship to Patient: Mate First Name: Delivery Method: HAND - Hand Delivered Yelena Days: Prior Verbal Notification: Recipient Understood Notice: Yes Recipient Signature: Yes Med Rec Note Co-signed by Attending: Coverage Notice Comment: declination for hh Reviewer: [email or web address] Cynthia Velez Notice Issued Date-Time: 06/21/2020 9:45 Notice Type: IM Discharge Notice Notice Delivered To: Patient Relationship to Patient: Mate First Name: Delivery Method: HAND - Hand Delivered Yelena Days: Prior Verbal Notification: Recipient Understood Notice: Yes Recipient Signature: Yes Med Rec Note Co-signed by Attending: Coverage Notice Comment: DC IMM delivered, explained, signed by the patient, and placed in chart. Signed form also left with the patient. Last DP export: 06/21/20 8:58 a Patient Name: GERALDINE CAPELLAN Page [phone] at 1843 All edits/amendments must be made on the electronic document DICTATION DATE: 06/22/201842 SKIP LOAD DRIVER: RUPERT 06/22/201842 RPT#: [id number] DC DATE:06/21/20 STATUS: DIS IN [facility] [address] [place] [address] END OF REPORT
== END 2020-06-21 11:02 | disposition home or self-care (01) | DRG 190 ==
LOC: D.ER 19:56 → D.M2 22:37
PROVIDERS: Family Medicine; Internal Medicine Pulmonary Disease; ADMIT Emergency Medicine; ATTEND Emergency Medicine
DX: J44.0 Chronic obstructive pulmonary disease with (acute) lower respiratory infection (principal); J18.9 Pneumonia, unspecified organism; I50.32 Chronic diastolic (congestive) heart failure; I13.0 Hypertensive heart and chronic kidney disease with heart failure and stage 1 through stage 4 chronic kidney disease, or unspecified chronic kidney disease; E87.1 Hypo-osmolality and hyponatremia; J44.1 Chronic obstructive pulmonary disease with (acute) exacerbation; I25.10 Atherosclerotic heart disease of native coronary artery without angina pectoris; N18.3 Chronic kidney disease, stage 3 (moderate); F41.9 Anxiety disorder, unspecified; E78.5 Hyperlipidemia, unspecified; K74.60 Unspecified cirrhosis of liver; Z87.891 Personal history of nicotine dependence

== ENCOUNTER 2021-01-28 20:20 | Emergency (ER) | payer MEDICARE, MEDICAID ==
[~2021-01-28] VITALS: Ht 175.3 cm; Wt 82.7 kg
[~2021-01-28 20:20] MED LIST changes: +ADVAIR 250-501 EAC1 INH; +OMNICEF300 MG PO; +PROAIR HFA8.5 G1 INH; +ZITHROMAX250 MG PO
[2021-01-28 20:27] VITALS: Ht 175.3 cm; Wt 82.7 kg
[2021-01-28 21:16] LABS: BASOPHILS 0.3 % (0-2); EOSINOPHILS 0.5 % (0-7); HEMATOCRIT 43.5 % (42.0-54.0); HEMOGLOBIN 14.4 g/dL (13.5-17.5); IMMATURE GRANULOCYTES 0.2 % (0-5); LYMPHOCYTE ABS# 1.02 10x3/uL (1.32-3.57); LYMPHOCYTES 11.5 % (15-50); MCH 29.3 pg (26.0-34.0); MCHC 33.1 g/dL (31.0-37.0); MCV 88.6 fL (80.0-100.0); MEAN PLATELET VOLUME 8.5 fL (7.4-10.4); MONOCYTES 9.4 % (2-11); NEUTROPHILS 78.1 % (40-80); PLATELET COUNT 150 10x3/uL (130-400); RBC 4.91 10x6/uL (4.20-6.10); RDW 14.3 % (11.5-14.5); WBC 8.8 10x3/uL (4.8-10.8)
[2021-01-28 21:24] LABS: CALC OSMOLALITY 261 mosm/kg (275-300); CALCIUM 8.7 mg/dL (8.5-10.1); CARBON DIOXIDE 25.5 mmol/L (21.0-32.0); CHLORIDE - SERUM 97 mmol/L (98-107); CREATININE - SERUM 1.4 mg/dL (0.6-1.3); GLUCOSE 103 mg/dL (74-106); POTASSIUM - SERUM 4.6 mmol/L (3.5-5.1); SODIUM 130 mmol/L (136-145); UREA NITROGEN 16 mg/dL (7-18); eGFR NON AFRICAN AMERICAN 54 mL/min (90-120)
[2021-01-28 21:25] LABS: APTT 28.3 SECONDS (22.8-39.4); INR 1.05 (0.85-1.17); PROTIME 12.7 SECONDS (11.6-15.0)
[2021-01-28 21:43] LABS: ALBUMIN 3.6 g/dL (3.4-5.0); ALKALINE PHOSPHATASE 62 U/L (30-120); ALT (SGPT) 36 U/L (10-68); BILIRUBIN - TOTAL 0.71 mg/dL (0.2-1.3); CKMB 12.3 U/L (0.0-3.6); CREATINE KINASE 1230 UL (21-232); MAGNESIUM - SERUM 2.3 mg/dL (1.8-2.4); PROTEIN - SERUM 6.9 g/dL (6.4-8.2); TROPONIN-I < 0.017 ng/mL (0.000-0.060)
[2021-01-28 23:16] VITALS: BP 198/84
[2021-01-29] MEDS ORDERED: ZOLOFT50 MG PO (15:46)
[2021-01-29] MEDS ORDERED: ULTRAM50 MG PO (15:46)
== END 2021-01-28 23:15 | disposition home or self-care (01) ==
LOC: D.ER 20:20
PROVIDERS: Emergency Medicine
DX: R07.9 Chest pain, unspecified (principal); I13.0 Hypertensive heart and chronic kidney disease with heart failure and stage 1 through stage 4 chronic kidney disease, or unspecified chronic kidney disease; N18.9 Chronic kidney disease, unspecified; I50.9 Heart failure, unspecified; J44.9 Chronic obstructive pulmonary disease, unspecified; R79.89 Other specified abnormal findings of blood chemistry

== ENCOUNTER 2021-02-03 16:06 | Emergency (ER) | payer MEDICARE, MEDICAID ==
[~2021-02-03] VITALS: Ht 175.3 cm; Wt 79.5 kg
[~2021-02-03 16:06] MED LIST changes: +ULTRAM50 MG PO; +ZOLOFT50 MG PO
[2021-02-03 16:14] VITALS: Ht 175.3 cm; Wt 79.5 kg
[2021-02-03 16:35] LABS: UDS - AMPHET NEGATIVE QUAL (NEGATIVE); UDS - BARB NEGATIVE QUAL (NEGATIVE); UDS - BENZO POSITIVE QUAL (NEGATIVE); UDS - COCAINE NEGATIVE QUAL (NEGATIVE); UDS - OPIATE NEGATIVE QUAL (NEGATIVE); UDS - PCP NEGATIVE QUAL (NEGATIVE); UDS - THC NEGATIVE QUAL (NEGATIVE)
[2021-02-03 16:37] LABS: BILIRUBIN NEGATIVE (NEGATIVE); KETONE NEGATIVE (NEGATIVE); NITRITE NEGATIVE (NEGATIVE); UROBILINOGEN NORMAL mg/dL (< 2)
[2021-02-03 16:56] LABS: ANION GAP 12.5 mmol/L (8-16); CALCIUM 9.3 mg/dL (8.5-10.1); CARBON DIOXIDE 28.5 mmol/L (21.0-32.0); CREATININE - SERUM 1.4 mg/dL (0.6-1.3)
[2021-02-03 17:02] LABS: ALBUMIN 3.5 g/dL (3.4-5.0); BILIRUBIN - TOTAL 0.19 mg/dL (0.2-1.3); MAGNESIUM - SERUM 2.1 mg/dL (1.8-2.4); PROTEIN - SERUM 6.9 g/dL (6.4-8.2)
[2021-02-03 17:16] LABS: BASOPHILS 0.4 % (0-2); EOSINOPHILS 1.8 % (0-7); HEMATOCRIT 40.3 % (42.0-54.0); IMMATURE GRANULOCYTES 0.4 % (0-5); LYMPHOCYTE ABS# 0.92 10x3/uL (1.32-3.57); LYMPHOCYTES 18.7 % (15-50); MCH 29.2 pg (26.0-34.0); MCHC 32.3 g/dL (31.0-37.0); MCV 90.6 fL (80.0-100.0); MEAN PLATELET VOLUME 8.8 fL (7.4-10.4); MONOCYTES 12.4 % (2-11); NEUTROPHIL ABS# 3.27 10x3/uL (1.78-5.38); NEUTROPHILS 66.3 % (40-80); PLATELET COUNT 171 10x3/uL (130-400); RBC 4.45 10x6/uL (4.20-6.10); RDW 14.6 % (11.5-14.5); WBC 4.9 10x3/uL (4.8-10.8)
[2021-02-03] MEDS ORDERED: LIBRIUM25 MG PO (17:52)
[2021-02-03 19:23] VITALS: BP 128/77
== END 2021-02-03 19:24 ==
LOC: D.ER 16:06
PROVIDERS: Family Medicine
DX: F10.239 Alcohol dependence with withdrawal, unspecified (principal); I11.0 Hypertensive heart disease with heart failure; I50.9 Heart failure, unspecified; J44.9 Chronic obstructive pulmonary disease, unspecified; Y90.9 Presence of alcohol in blood, level not specified

== ENCOUNTER → 2021-02-05 18:34 | Outpatient (CLI) | payer MEDICARE, MEDICAID ==
[2021-02-03 16:14] VITALS: BMI 25.9
[~2021-02-05 18:34] MED LIST changes: +LIBRIUM25 MG PO
[2021-02-05 20:01] LABS: BASOPHILS 0.3 % (0-2); EOSINOPHILS 2.1 % (0-7); HEMATOCRIT 38.8 % (42.0-54.0); HEMOGLOBIN 12.3 g/dL (13.5-17.5); IMMATURE GRANULOCYTES 0.6 % (0-5); LYMPHOCYTE ABS# 1.49 10x3/uL (1.32-3.57); LYMPHOCYTES 22.7 % (15-50); MCH 29.1 pg (26.0-34.0); MCHC 31.7 g/dL (31.0-37.0); MCV 91.7 fL (80.0-100.0); MEAN PLATELET VOLUME 9.6 fL (7.4-10.4); NEUTROPHIL ABS# 4.02 10x3/uL (1.78-5.38); NEUTROPHILS 61.3 % (40-80); PLATELET COUNT 211 10x3/uL (130-400); RBC 4.23 10x6/uL (4.20-6.10); RDW 14.7 % (11.5-14.5); WBC 6.6 10x3/uL (4.8-10.8)
[2021-02-05 20:19] LABS: ALBUMIN 3.4 g/dL (3.4-5.0); ANION GAP 10.2 mmol/L (8-16); BILIRUBIN - TOTAL 0.16 mg/dL (0.2-1.3); CALCIUM 8.7 mg/dL (8.5-10.1); CARBON DIOXIDE 28.6 mmol/L (21.0-32.0); CREATININE - SERUM 1.3 mg/dL (0.6-1.3); POTASSIUM - SERUM 3.8 mmol/L (3.5-5.1)
== END | disposition home or self-care (01) ==
LOC: D.LABREF 18:34
PROVIDERS: ATTEND Family Medicine
DX: J44.9 Chronic obstructive pulmonary disease, unspecified (principal)

== ENCOUNTER → 2021-02-28 19:26 | Outpatient (CLI) | payer MEDICARE, MEDICAID ==
[2021-02-03 16:14] VITALS: BMI 25.9
[2021-02-28 20:37] LABS: BILIRUBIN NEGATIVE (NEGATIVE); KETONE NEGATIVE (NEGATIVE); NITRITE NEGATIVE (NEGATIVE); UROBILINOGEN NORMAL mg/dL (< 2)
[2021-02-28 20:38] LABS: BACTERIA FEW HPF (NONE SEEN)
== END | disposition home or self-care (01) ==
LOC: D.LABREF 19:26
PROVIDERS: ATTEND Family Medicine
DX: R41.0 Disorientation, unspecified (principal)